=== PATIENT | male | born 2000 | race Caucasian/White ===

== ENCOUNTER 2023-05-04 09:21 | Outpatient (REF) | payer MEDICAID, SELFPAY ==
[2023-05-04 11:06] LABS: Alanine Aminotransferase 25 U/L (0-40); Alkaline Phosphatase 81 U/L (39-117); Anion Gap 19 (12-20); Aspartate Amino Transferase 21 U/L (5-37); Bilirubin Total 0.7 mg/dL (0.0-1.0); Blood Urea Nitrogen 15 mg/dL (9-16); Calcium 9.4 mg/dL (8.4-10.2); Carbon Dioxide 23 mmol/L (22-29); Chloride 102 mmol/L (96-108); Cholesterol 185 mg/dL (<200); Estimated Glomerular Filt Rate > 60; Glucose Random 129 mg/dL (60-115); HDL Cholesterol 36 mg/dL (>40); LDL Cholesterol Calculated 109 mg/dL (<100); Potassium 4.4 mmol/L (3.3-5.1); Sodium 140 mmol/L (135-145); Total Protein 8.1 g/dL (6.5-8.0); Triglycerides 202 mg/dL (<150)
== END 2023-05-04 09:22 | disposition home or self-care (01) ==
LOC: HO.LAB 09:21
PROVIDERS: PCP Nurse Practitioner Primary Care; Visit Provider Nurse Practitioner Primary Care
DX: E11.69 Type 2 diabetes mellitus with other specified complication (principal); E78.5 Hyperlipidemia, unspecified
CPT/HCPCS: 36415; 80053; 80061; 82043

== ENCOUNTER 2024-10-04 11:13 | Outpatient (REF) | payer OTHER, SELFPAY ==
--- OUTSIDE RECORDS SUMMARY | 2024-10-04 12:28 | XMS_ITS | Encounter Summary ---
Author Organization [employer] Address [address] [facility] [address] [place] [address] Care Team Providers Care Ceramist Name Role Phone Ling Beck Primary Care Provider [phone] Encounter Details Date Type Department Care Team (Latest Contact Info) Description 10/04/2024 10:15 AM EST Office Visit [facility] MED[facility] [address] [place], [place] [phone] Ling Beck ANP [address] [place], [place] [phone] Hospital discharge follow-up (Primary Dx); Type 2 diabetes mellitus with hyperglycemia, with long-term current use of insulin (CMS/[facility]); Dietary counseling; Exercise counseling; Type 2 diabetes mellitus with hyperlipidemia (CMS/HCC) ([facility]/HCC); Hypertension associated with diabetes (CMS/HCC) ([facility]); Uncontrolled diabetes mellitus with hyperglycemia, with long-term current use of insulin ([facility]); Encounter for immunization Social History Tobacco Use Types Packs/Day Years Used Date Smoking Tobacco: Never Smokeless Tobacco: Never Alcohol Use Standard Drinks/Week Comments Never 0 (1 standard drink = 0.6 oz pur e alcohol) Depression Answer Date Recorded Patient Health Questionnaire-9 Score 1 03/14/2024 Patient Health Questionnaire-9 Score 1 03/14/2024 Last PHQ-9: Questionnaire Data Not on file 0 03/14/2024 Housing Stability Answer Date Recorded What is your housing situation today? I have christian cadena 03/02/[address] you li ve. Do you have problems with any of the following? None of the above 03/02/2024 Food Insecurity Answer Date Recorded Within the past 12 months, y ou worried that your food would run out before you got money to buy more: Never True 03/02/2024 Within the past 12 months,th e food you bought just didn't last and you didn't have enough money to get more: Never True Transportation Answer Date Recorded In the past 12 months, has l ack of transportation kept you from medical appts, meetings, work or from getting things needed for daily living? No 03/02/2024 Utilities Answer Date Recorded In the past 12 months, has t he electric, gas, oil or water company threatened to shut off services in your home? No 03/02/2024 Depression Answer Date Recorded Patient Health Questionnaire-2 Score 0 03/14/2024 Internet Access Answer Date Recorded Internet Access Q1 Yes 08/10/2024 Internet Access Q2 Not on file 08/10/2024 Sex and Gender Information Value Date Recorded Sex Assigned at Male 07/07/2022 10:19 AM EDT Legal Sex Male 10:19 AM EDT Gender Identity Male 07/07/2022 10:19 AM EDT Sexual Orientation Straight 07/07/2022 10 :19 AM EDT documented as of this encounter Last Filed Vital Signs Vital Sign Reading Time Taken Comments Blood Pressure 128/68 10/04/2024 10:25 AM EST Pulse 80 10/04/2024 10:25 AM EST Temperature 36.7 ??C (98.1 ??F) 10/04/2024 10:[address] Respiratory Rate 20 10/04/2024 10:25 AM EST Oxygen Saturation 98% 10/04/2024 10:25 AM EST Inhaled Oxygen Concentration - - Weight 145 kg (319 lb) 10/04/2024 10:25 AM EST Height 172.7 cm (5' 8 ) 10/04/2024 10:25 AM EST Body Mass Index 48.5 10/04/2024 10:25 AM EST documented in this encounter Plan of Treatment Upcoming Encounters Date Type Department Care Team (Late st Contact Info) Description 12/23/2024 11:00 AM EDT Office Visit [facility] [address] [place] [address] Ling Beck ANP [address] [place] [address] 01/12/2025 10:00 AM EDT Office Visit [facility] OPTOMET[facility] [address] [place] [address] Loraine Childress, OD [address] [place] [address] Scheduled Orders Name Type Priority Associated Diagnoses Orde r Schedule Lipid Panel, Standard Lab Routine Type 2 diabetes mellitus with hyperlipidemia (CMS/HCC) (CMS/HCC) Expected: 10/04/2024 (Approximate), Expires: 10/04/2025 Comprehensive Metabolic Panel Lab Routine Type 2 diabetes mellitus with hyperlipidemia (CMS/HCC) (CMS/HCC) Expected: 10/04/2024 (Approximate), Expires: 10/04/2025 Vitamin B12 Lab Routine Type 2 diabetes mellitus with hyperlipidemia (CMS/HCC) (CMS/HCC) Expected: 10/04/2024 (Approximate), Expires: 10/04/2025 Albumin, Random Urine W/Creatinine Lab Routine Type 2 diabetes mellitus with hyperlipidemia (CMS/HCC) (CMS/HCC) Expected: 10/04/2024 (Approximate), Expires: 10/04/2025 documented as of this encounter Procedures Procedure Name Priority Date/Time Associated Diagnosis Comments POCT GLYCATED HEMOGLOBIN, TOTAL Routine 10/04/2024 10:27 AM EST Type 2 diabetes mellitus with hyperglycemia, with long-term current use of insulin (CMS/[facility]) POCT GLUCOSE Routine 10/04/2024 10:27 AM EST Type 2 diabetes mellitus with hyperglycemia, with long-term current use of insulin ([facility]) documented in this encounter Results * POCT Glucose (10/04/2024 10:27 AM EST) Glucose Blood, POC 131 60 - 200 mg/dL QC Media Lot # [id number] Lot# Expiration Date Blood Capillary blood specimen / Unknown 10/04/2024 10:27 AM EST [facility] POINT OF CARE TEST ENTER/EDIT OR DERABLES Final Result * (ABNORMAL) POCT HGB A1C (10/04/2024 10:27 AM EST) Hemoglobin A1C 7.8(A) 4.0 - 6.0 % QC Media Lot # [id number] Lot# Expiration Date ,334 Blood 10/04/2024 10:2 7 AM EST Ling ALBERTS POINT OF CARE TEST ENTER/EDIT OR DERABLES Final Result documented in this encounter Visit Diagnoses Diagnosis Hospital discharge follow-up- Primary Other follow-up examination Type 2 diabetes mellitus with hyperglycemia, with long-term current use of insulin ([facility]) Dietary counseling Dietary surveillance and counseling Exercise counseling Type 2 diabetes mellitus with hyperlipidemia (CMS/HCC) ([facility]/HCC) Hypertension associated with diabetes (CMS/HCC) ([facility]) Unspecified essential hypertension Uncontrolled diabetes mellitus with hyperglycemia, with long-term current use of insulin ([facility]) Encounter for immunization documented in this encounter Additional Health Concerns Assessment Noted Time PHQ-9 Depression Total Score: 1 03/14/20 24 11:09 AM EDT documented as of this encounter Care Teams Ceramist Relationship Specialty Start Date End Date Ling Beck ANP [address] [place] [address] PCP - General Family Medicine 11/15/19 documented as of this encounter
--- OUTSIDE RECORDS SUMMARY | 2024-10-04 12:28 | XMS_ITS | Encounter Summary ---
Author Organization [employer] Address [address] [facility] [address] [place] [address] Care Team Providers Care Cloth Designer Name Role Phone Kiran Ling ALBERTS Primary Care Provider Encounter Details Date Type Department Care Team (Latest Contact Info) Description 10/04/2024 Travel Social History Tobacco Use Types Packs/Day Years [...] AM EDT documented as of this encounter Plan of Treatment Upcoming Encounters Date Type Department Care Team (Late st Contact Info) Description 12/23/2024 11:00 AM EDT Office Visit [facility] [address] [place] [address] Ling Beck ANP [address] [place] [address] 01/12/2025 10:00 AM EDT Office Visit [facility] OPTOMET[facility] [address] [place] [address] Loraine Childress, OD [address] [place] [address] documented as of this encounter Visit Diagnoses Not on filedocumented in this encounter Additional Health Concerns Assessment Noted Time PHQ-9 Depression Total Score: 1 03/14/20 24 11:09 AM EDT documented as of this encounter Care Teams Cloth Designer Relationship Specialty Start Date End Date Ling Beck ANP [address] [place] [address] PCP - General Family Medicine 11/15/19 documented as of this encounter
--- OUTSIDE RECORDS SUMMARY | 2024-10-04 12:28 | XMS_ITS | Encounter Summary ---
Author Organization [employer] Address [address] [facility] [address] [place] [address] Care Team Providers Care Field Service Consultant Name Role Phone Ling Beck Primary Care Provider [phone] Reason for Visit * Reason Comments Med Refill Encounter Details Date Type Department Care Team ([facility] st Contact Info) Description 09/25/2024 Refill [facility] [address] [place], [place] [phone] Ling Beck ANP [address] [place] [address] Type 2 diabetes mellitus with hyperlipidemia ([facility]/HCC) ([facility]) Social History Tobacco Use Types Packs/Day Years [...] Description 12/23/2024 11:00 AM EDT Office Visit [facility] [address] [place] [address] Ling Beck ANP [address] [place] [address] 01/12/2025 10:00 AM EDT Office Visit [facility] OPTOMETRY [address] [place] [address] Loraine Childress, OD [address] [place] [address] documented as of this encounter Visit Diagnoses Diagnosis Type 2 diabetes mellitus with hyperlipidemia (CMS/HCC) (CMS/HCC) documented in this encounter Additional Health Concerns Assessment Noted Time PHQ-9 Depression Total Score: 1 03/14/20 24 11:09 AM EDT documented as of this encounter Care Teams Field Service Consultant Relationship Specialty Start Date End Date Ling Beck ANP [address] [place] [address] PCP - General Family Medicine 11/15/19 documented as of this encounter
--- OUTSIDE RECORDS SUMMARY | 2024-10-04 12:28 | XMS_ITS | Encounter Summary ---
Author Organization [employer] [facility] Address [address] [place] [address] [address] [place] [address] Care Team Providers Care Hydraulic Lift Operator Name Role Phone Yadira Moses Primary Care Provider [phone] Reason for Referral * Consultation (Urgent) - Authorized Specialty Diagnoses / Procedures Referred By Contac t Referred To Contact Endocrinology Diagnoses Type 2 diabetes mellitus with hyperlipidemia (CMS/HCC) ([facility]/HCC) History of diabetic ketoacidosis Yadira Moses ANP [address] [place] [address] Phone: tel: fax: [facility] [address] [place] [address] Phone: tel: fax: Referral ID Status Reason Start Date Expiration Date Visits Requested Visits Authorized [id number] Authorized Specialty Services Required 09/27/2024 09/27/2025 1 1 Reason for Visit * Reason Onset Date Comments Prior Authorization 09/24/2024 Encounter Details Date Type Department Care Team ([facility] st Contact Info) Description 09/24/2024 Telephone [facility] [address] [place], [place] [phone] Mariam Muhammad RN [address] [place], [place] [phone] Prior Authorization Social History Tobacco Use Types Packs/Day Years [...] AM EDT documented as of this encounter Miscellaneous Notes * Telephone Encounter - Sheila Porter RN - 09/28/2024 3:36 PM EST PA packet faxed to [facility] at [phone]. Confirmation received, placed in bin to scan. * Telephone Encounter - Sheila Porter RN - 09/27/2024 10:21 AM EST Continuous Glucose Monitor packet for renewal of sensors generated and placed on PCP desk. Called pt to notify that endocrinology referral was made, advised pt that endo referral made today and to expect call in about a week from that office to schedule an appt. Also informed that CGM sensor paperwork being sent to insurance company for review. Pt verbalized understanding, to call clinic PRN. * Addendum Note - ARISTEO Vick - 09/27/2024 8:59 AM ESTAddended by: YADIRA MOSES on: 09/27/2024 08:59 AM Modules accepted: Orders * Telephone Encounter - ARISTEO Vick - 09/27/2024 8:54 AM EST Can we try to get covered for CGM based on hospitalization for DKA? I will place referral to endo as well - please let pt know, am referring to endo d/t need for higher level of care. Though he has been stable when he complies w/ DM diet and takes meds, when he does not, the result is extreme - I believe this is his 3rd hospitalization for DKA. Lab Results Component Value Date HGBA1C 9.1 (A) 03/14/2024 HGBA1C 6.2 (A) 07/10/2023 HGBA1C 6.0 (A) 04/09/2023 HGBA1C 6.2 (A) 12/25/2022 HGBA1C 9.6 (A) 10/02/2022 HGBA1C 5.9 (H) 02/13/2021 * Telephone Encounter - Mariam Muhammad RN - 09/24/2024 11:43 AM EST Received request for CGM sensor renewal. However, in order for insurance to cover, they require that pt is either stable or has improved glycemic control on CGM. Pt's A1C has increased from 9.1% to 11.7% since starting (possibly different now as most recent check was in July) and he was admitted for diabetic ketoacidosis in July as well. documented in this encounter Plan of Treatment Upcoming Encounters Date Type Department Care Team (Late st Contact Info) Description 12/23/2024 11:00 AM EDT Office Visit [facility] MEDICINE [address] [place] [address] Yadira Moses ANP [address] [place] [address] 01/12/2025 10:00 AM EDT Office Visit [facility] OPTOMETRY [address] [place], [place] [phone] Loraine Childress, OD [address] [place] [address] Scheduled Referrals Name Type Priority Associated Diagnoses Orde r Schedule Referral to Endocrinology Outpatient Referral Urgent Type 2 diabetes mellitus with hyperlipidemia (CMS/HCC) (CMS/HCC) History of diabetic ketoacidosis Expected: 09/27/2024 (Approximate), Expires: 09/27/2025 documented as of this encounter Visit Diagnoses Diagnosis Type 2 diabetes mellitus with hyperlipidemia (CMS/HCC) (CMS/HCC)- Primary History of diabetic ketoacidosis documented in this encounter Additional Health Concerns Assessment Noted Time PHQ-9 Depression Total Score: 1 03/14/20 24 11:09 AM EDT documented as of this encounter Care Teams Hydraulic Lift Operator Relationship Specialty Start Date End Date Yadira Moses ANP [address] [place] [address] PCP - General Family Medicine 11/15/19 documented as of this encounter
--- OUTSIDE RECORDS SUMMARY | 2024-10-04 12:28 | XMS_ITS | Encounter Summary ---
Author Organization [employer] Address [address] [place] [address] [address] [place] [address] Care Team Providers Care Inside Sales Consultant Name Role Phone Ling Beck Primary Care Provider [phone] Reason for Visit * Reason Onset Date Comments Med Refill 10/07/2022 Encounter Details Date Type Department Care Team ([facility] st Contact Info) Description 10/07/2022 Telephone [facility] [address] [place], [place] [phone] Ling Beck ANP [address] [place] [address] Med Refill Social History Tobacco Use Types Packs/Day Years Used Date Smoking Tobacco: Never Smokeless Tobacco: Never Alcohol Use Standard Drinks/Week Comments Never 0 (1 standard drink = 0.6 oz pur e alcohol) Depression Answer Date Recorded Patient Health Questionnaire-9 Score 1 10/02/2022 Depression Answer Date Recorded Patient Health Questionnaire-2 Score 1 10/02/2022 Sex and Gender Information Value Date Recorded Sex Assigned at Male 07/07/2022 10:19 AM EDT Legal Sex Male 10:19 AM EDT Gender Identity Male 07/07/2022 10:19 AM EDT Sexual Orientation Straight 07/07/2022 10 :19 AM EDT COVID-19 Exposure Response Date Recorded In the last 10 days, have yo u been in contact with someone who was confirmed or suspected to have Coronavirus/COVID-19? No / Unsure 10/02/2022 9:09 AM EST documented as of this encounter Miscellaneous Notes * Telephone Encounter - Loretta Mars RN - 10/09/2022 12:11 PM EST Pt came into [facility] asking for medication, states out of lantus, med refill in inbox. * Telephone Encounter - Liana Orozco LPN - 10/07/2022 10:53 AM EST Please note Patient called seeking refills He was last seen 01/28/21 and has scheduled an appt on 10/23/22.Please review and advise * Telephone Encounter - Kym Voss - 10/07/2022 10:19 AM EST Tc from pt requesting med refill for medication lantus, metformin 500 mg and atorvastatin 20 mg . documented in this encounter Plan of Treatment Upcoming Encounters Date Type Department Care Team (Late st Contact Info) Description 12/23/2024 11:00 AM EDT Office Visit [facility] [address] [place] [address] Ling Beck ANP [address] [place] [address] 01/12/2025 10:00 AM EDT Office Visit [facility] OPTOMETRY [address] [place] [address] Loraine Childress, OD [address] [place] [address] documented as of this encounter Visit Diagnoses Not on filedocumented in this encounter Additional Health Concerns Assessment Noted Time PHQ-9 Depression Total Score: 1 10/02/19 23 9:26 AM EST documented as of this encounter Care Teams Inside Sales Consultant Relationship Specialty Start Date End Date Ling Beck ANP [address] [place] [address] PCP - General Family Medicine 11/15/19 documented as of this encounter
--- OUTSIDE RECORDS SUMMARY | 2024-10-04 12:28 | XMS_ITS | Clinical Summary ---
Author Organization [email or web address] Address [address] [facility] [address] [place] [address] Care Team Providers Care Application Support Lead Name Role Phone Ling Beck ARISTEO Primary Care Provider [phone] Allergies No known active allergies Medications glucose-vitamin C 4-6 GM-MG oral gelIndications:T ype 2 diabetes mellitus with hyperlipidemia (CMS/HCC) (CMS/[facility]) take 3 tabs if BG 60 or below, recheck BG in 15min, if cont to be low, take 3 more tabs and go to ED 50 tablet 1 023 Active Alcohol Swabs (B-D SINGLE USE SWABS REGULAR) padsIndications: Type 2 diabetes mellitus with hyperlipidemia (CMS/HCC) (CMS/HCC) USE 1 SWAB EXTERNALLY 4 TIMES DAILY DIRECTED 100 each 024 Active FREESTYLE LITE test stripIndications :Type 2 diabetes mellitus with hyperlipidemia (CMS/HCC) (CMS/HCC) USE 1 STRIP TO CHECK GLUCOSE 4 TIMES DAILY DIRECTED 100 each 024 Active FreeStyle lancetsIndicatio ns:Type 2 diabetes mellitus with hyperlipidemia (CMS/HCC) (CMS/[facility]) 1 each by Other route 4 times daily. Or more often if needed 100 each 024 Active glucose blood (FreeStyle Precision Augie Test) test stripIndications :Uncontrolled diabetes mellitus with hyperglycemia, with long-term current use of insulin (CMS/[facility]) Use w/ CGM machine for fingerstick BG 4 times/d or more as needed 100 each 024 2024 Active Continuous Glucose Director Of Special Events (FreeStyle Marcelo 2 Piercy) deviceIndication s:Type 2 diabetes mellitus with hyperlipidemia ([facility]/HCC) ([facility]),Type 2 diabetes mellitus with hyperglycemia, with long-term current use of insulin ([facility]),Uncont rolled diabetes mellitus with hyperglycemia, with long-term current use of insulin ([facility]) Use with sensor to check blood sugars 1 each 024 Active Blood Glucose Monitoring Suppl (FreeStyle Lite) w/Device kit USE 1 TO CHECK GLUCOSE THREE TIMES DAILY BEFORE MEALS/SNACKS AND ONCE BEFORE BEDTIME 024 Active metFORMIN XR (Glucophage-XR) 500 MG 24 hr tabletIndication s:Type 2 diabetes mellitus with hyperlipidemia ([facility]/HCC) ([facility]) Take 2 tablets (1,000 mg) by mouth Once daily. Do not crush, chew, or split. 60 tablet 11 025 2025 Active Lantus SoloStar 100 UNIT/ML penIndications:T ype 2 diabetes mellitus with hyperlipidemia ([facility]/HCC) ([facility]) INJECT 30 UNITS SUBCUTANEOUSLY ONCE DAILYINJECT 40 UNITS SUBCUTANEOUSLY ONCE DAILY 30 mL 2 025 Active atorvastatin (Lipitor) 20 MG tabletIndication s:Type 2 diabetes mellitus with hyperglycemia, with long-term current use of insulin ([facility]) Take 1 tablet (20 mg) by mouth at bedtime. 90 tablet 3 025 Active Dulaglutide (Trulicity) 0.75 MG/0.5ML solution auto-injectorInd ications:Type 2 diabetes mellitus with hyperglycemia, with long-term current use of insulin ([facility]) Inject 0.75 mg under the skin 1 (one) time per week. 2 mL 025 Active lisinopril 10 MG tabletIndication s:Type 2 diabetes mellitus with hyperlipidemia ([facility]/HCC) ([facility]),Hypert ension associated with diabetes ([facility]/HCC) ([facility]) 1 tablet by mouth once daily 90 tablet 1 025 Active Continuous Glucose Sensor (FreeStyle Marcelo 2 Sensor) miscIndications: Type 2 diabetes mellitus with hyperglycemia, with long-term current use of insulin ([facility]),Type 2 diabetes mellitus with hyperlipidemia ([facility]/HCC) ([facility]),Uncont rolled diabetes mellitus with hyperglycemia, with long-term current use of insulin ([facility]) Apply 1 sensor as directed every 14d 6 each 3 025 Active Lantus SoloStar 100 UNIT/ML penIndications:T ype 2 diabetes mellitus with hyperlipidemia ([facility]/HCC) ([facility]) INJECT 40 UNITS SUBCUTANEOUSLY ONCE DAILY 30 mL 2 024 2024 Discontinued metFORMIN XR (Glucophage-XR) 500 MG 24 hr tabletIndication s:Type 2 diabetes mellitus with hyperlipidemia ([facility]/HCC) ([facility]) Take 2 tablets (1,000 mg) by mouth with breakfast and with evening meal. Do not crush, chew, or split. 120 tablet 11 024 2024 Discontinued(R eorder (will not trigger notification to Pharmacy)) Continuous Glucose Sensor (FreeStyle Marcelo 2 Sensor) miscIndications: Type 2 diabetes mellitus with hyperlipidemia ([facility]/HCC) ([facility]),Type 2 diabetes mellitus with hyperglycemia, with long-term current use of insulin ([facility]),Uncont rolled diabetes mellitus with hyperglycemia, with long-term current use of insulin ([facility]) Apply 1 sensor as directed every 14d 6 each 3 024 2024 Discontinued(R eorder (will not trigger notification to Pharmacy)) lisinopril 10 MG tabletIndication s:Type 2 diabetes mellitus with hyperlipidemia ([facility]/HCC) ([facility]),Hypert ension associated with diabetes ([facility]) ([facility]) 1 tablet by mouth once daily 90 tablet 1 024 2024 Discontinued(R eorder (will not trigger notification to Pharmacy)) atorvastatin (Lipitor) 20 MG tablet Take 20 mg by mouth Once per day. 2024 Discontinued(R eorder (will not trigger notification to Pharmacy)) insulin lispro (HumaLOG) 100 UNIT/ML injection Subcutaneous 1-3x/day as directed. BG </=150 mg/dl, no need to take. BG 151-200 mg/dl, 2 units; 201-250, 3 units; 251-300, 4 units; 301-350, 5 units; 351-400, 7 units; > or equal to 401, 8 units. 024 2024 Discontinued(T herapy completed) Lantus SoloStar 100 UNIT/ML penIndications:T ype 2 diabetes mellitus with hyperlipidemia (CMS/HCC) ([facility]) INJECT 40 UNITS SUBCUTANEOUSLY ONCE DAILY 30 mL 2 025 2024 Discontinued(R eorder (will not trigger notification to Pharmacy)) Active Problems Problem Noted Date Diagnosed Date Type 2 diabetes mellitus with hyperlipidemia (CM S/HCC) 10/02/2022 Hyperlipidemia 11/08/2017 Steatohepatitis 11/08/2017 Obesity 01/21/2012 Encounters Date Type Department Care Team Description 10/04/2024 10:15 AM EST Office Visit [facility] [address] [place] [id number] Ling Beck ANP Hospital discharge follow-up (Primary Dx); Type 2 diabetes mellitus with hyperglycemia, with long-term current use of insulin (CMS/[facility]); Dietary counseling; Exercise counseling; Type 2 diabetes mellitus with hyperlipidemia (CMS/HCC) ([facility]); Hypertension associated with diabetes (CMS/HCC) ([facility]); Uncontrolled diabetes mellitus with hyperglycemia, with long-term current use of insulin ([facility]); Encounter for immunization 10/04/2024 Travel 09/25/2024 Refill [facility] [address] [place] [phone] Ling Beck ANP Type 2 diabetes mellitus with hyperlipidemia (CMS/HCC) ([facility]/HCC) 09/24/[address] [phone] 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 08/30/[address] [phone] Ling Beck ANP Hospital Follow-up 08/29/[address] [phone] Inga Lewis MA chart prep 08/10/2024 Patient Outreach [address] [phone] Ling Beck ANP Pre-visit Planning (SDOH screening was completed on 03/02/2024 / patient wants to R/s ) from Last 3 Months Immunizations Name Administration Dates Next Due DTaP 05/24/2003, 0,1999,07/10,1999 HPV 9-Valent 06/07/2015 HPV, Quadrivalent 05/14/2012,04/30/2011 Hep A, ped/adol, 2 dose 04/30/2011,04/30/2010 Hep B, Adolescent or Pediatric 1999,1998,1999 Hib (HbOC) 02/12/2000, 0,1999,04/17 IPV 05/24/2003, 0,1999,04/17 Influenza injectable quadriv alent IIV4 with preservative 06/30/2019 Influenza injectable quadriv alent preservative free 09/11/2022,09/16/2018,08/04/2017,06/26 Influenza live intranasal qu adrivalent LIAV4 06/07/2015 Influenza live intranasal trivalent 05/14/2012 Influenza, live, intranasal 05/14/2012 Influenza, seasonal, injecta ble, preservative free 10/04/2024 MMR 05/24/2003,02/12/2000 Meningococcal MCV4P ACYW-135 06/07/2015,04/30/20 11 Moderna Covid-19 Vaccine 12+ 12/05/2020,11/08/19 21 Pneumococcal Conjugate PCV 7 08/13/2000,05/14/20 00 Tdap 10/04/2024,04/30/2010 Varicella 04/20/2009,02/12/2000 Social History Tobacco Use Types Packs/Day Years [...] Orientation Straight 07/07/2022 10 :19 AM EDT Last Filed Vital Signs Vital Sign Reading [...] Mass Index 48.5 10/04/2024 10:25 AM EST Plan of Treatment Upcoming Encounters Date Type Department Care Team (Late st Contact Info) Description 12/23/2024 11:00 AM EDT Office Visit [facility] [address] [place] [address] Ling Beck, ARISTEO [address] [place] [address] 01/12/2025 10:00 AM EDT Office Visit [facility] [address] [place] [address] Loraine Childress, OD [address] [place] [address] Health Maintenance Due Date Last Done Comments HIV Screening 1999 Pneumococcal Vaccine: Pediatrics (0 to 5 Years) and At-Risk Patients (6 to 64 Years) (1 of 2 - PCV) 2005 08/13/2000, 05/14/2000 Diabetes: Foot Exam 2009 Family Planning (PISQ) 2014 Hepatitis C Screening 2017 Diabetes: Urine Protein Screening 05/04/2024 05/04/2023, 02/13/2021, 10/24/2020 Lipid Panel 05/04/2024 05/04/2023, 02/13/2021 COVID-19 Vaccine ( season) 2024 09/09/2021, 12/05/2020, 11/07/2020 Diabetes: Hemoglobin A1C 01/02/2025 025, 03/14/2024, 07/10/2023, Additional history exists SDOH Screening 03/02/2025 03/02/2024 Depression Screening 03/14/2025 03/14/2024, 03/14/20 24 Eye Exam 07/02/2025 07/02/2023, 06/08, 07/02/2023, Additional history exists Alcohol/Substance Use Screening 10/04/2025 10/04/2024 Tobacco Screening 10/04/2025 10/04/2024 DTaP/Tdap/Td Vaccines (8 - Td or Tdap) 10/04/2034 10/04/2024, 04/30/2010, 05/24/2003, Additional history exists Zoster Vaccines (1 of 2) 2049 RSV Patients and Patients Aged 60 years or older (1 - 1-dose 75+ series) 2074 Hepatitis B Vaccines Completed 1999, 1999, 1999 HIB Vaccines Completed 02/12/2000, 09/07, 1999, Additional history exists IPV Vaccines Completed 05/24/2003, 09/07, 1999, Additional history exists Hepatitis A Vaccines Completed 04/30/2011, 04/30/20 10 HPV Vaccines Completed 06/07/2015, 03/2012, 04/30/2011 Meningococcal Vaccine Completed 06/07/2015, 011 Influenza Vaccine Completed 10/04/2024, , 06/30/2019, Additional history exists RSV under 20 months Aged Out No longe r eligible based on patient's age to complete this topic Rotavirus Vaccines Aged Out No longer eligible based on patient's age to complete this topic Procedures Procedure Name Priority Date/Time Associated Diagnosis Comments POCT GLUCOSE Routine 10/04/2024 10:27 AM EST Type 2 diabetes mellitus with hyperglycemia, with long-term current use of insulin ([facility]) POCT GLYCATED HEMOGLOBIN, TOTAL Routine 10/04/2024 10:27 AM EST Type 2 diabetes mellitus with hyperglycemia, with long-term current use of insulin ([facility]) ALBUMIN, RANDOM URINE W/CREATININE Routine 05/04/2023 9:45 AM EDT Type 2 diabetes mellitus with hyperlipidemia ([facility]) LIPID PANEL, STANDARD Routine 05/04/2023 9:45 AM EDT Type 2 diabetes mellitus with hyperlipidemia ([facility]) from Last 3 Months or Most Recently Relevant to Health Maintenance Results * (ABNORMAL) POCT HGB A1C (10/04/2024 10:27 AM EST) Hemoglobin A1C 7.8(A) 4.0 - 6.0 % QC Media Lot # [id number] Lot# Expiration Date ,[id number] Blood 10/04/2024 10:2 7 AM EST [facility] POINT OF CARE TEST ENTER/EDIT OR DERABLES Final Result * POCT Glucose (10/04/2024 10:27 AM EST) Glucose Blood, POC 131 60 - 200 mg/dL QC Media Lot # [id number] Lot# Expiration Date Blood Capillary blood specimen / Unknown 10/04/2024 10:27 AM EST us Ling Beck ANP POINT OF CARE TEST ENTER/EDIT OR DERABLES Final Result * Albumin, Random Urine W/Creatinine (05/04/2023 9:45 AM EDT) Pathologist [facility] Creatinine, Urine 417.00 mg/dL [facility] Microalbumin Urine 17.0 mg/L [facility] Microalbum Creatinine Ratio Ur 4.0 <30 ug/mg cr [facility] Comment:Albumin/Creatinine R atio Reference Ranges: Normal: < 30 ug/mg creatinine Microalbuminuria: 30 - 300 ug/mg creatinineClinical Albuminuria: > 300 ug/mg creatinine Urine 05/04/2023 9:45 AM EDT 05/04/2023 10:39 AM EDT us Ling Beck ANP LAB URINE ORDERABLES Final Resul t [facility] [address] [place] [phone] * (ABNORMAL) Lipid Panel, Standard (05/04/2023 9:45 AM EDT) Triglycerides 202(H) <150 mg/dL [facility] Comment:Desirable Triglyceri de: less than 150 mg/dLBorderline High Triglyceride 150-199 mg/dLHigh Triglyceride: 200-499 mg/dLVery High Triglyceride: greater than or equal to 5OO mg/dL Cholesterol 185 <200 mg/dL [facility] Comment:Desirable Cholestero l: less than 200 mg/dLBorderline High Cholesterol: 200-239 mg/dLHigh Cholesterol: greater than 239 mg/dL LDL Cholesterol Calculated 109(H) <100 mg/dL [facility] Comment:Desirable LDL: less than 100 mg/dLNear Optimal/Above Optimal LDL: 110- 129 mg/dLBorderline High LDL: 130-159 mg/dLHigh LDL: 160-189 mg/dLVery High LDL: greater than or equal to 190 mg/dL HDL Cholesterol 36(L) >40 mg/dL [facility] Comment:Desirable HDL: great er than 40 mg/dL Note: This HDL assay may give artificially low results in patients with liver disease. Blood Venous blood specimen / Unknown 05/04/2023 9:45 AM EDT 05/04/2023 9:45 AM EDT us Ling Beck [facility] BLOOD ORDERABLES Final Resul t [facility] [address] [place] [place] [phone] from Last 3 Months or Most Recently Relevant to Health Maintenance Insurance [employer] C3 Care Teams Application Support Lead Relationship Specialty Start Date End Date Ling Beck ANP [address] [place] [address] PCP - General Family Medicine 11/15/19
--- OUTSIDE RECORDS SUMMARY | 2024-10-04 12:28 | XMS_ITS | Encounter Summary ---
Author Organization [employer] Address [address] [facility] 7 [place] [address] Care Team Providers Care Production Line Manager Name Role Phone Ling Beck Primary Care Provider [phone] Reason for Visit * Reason Onset Date Comments Hospital Follow-up 08/30/2024 Encounter Details Date Type Department Care Team ([facility] st Contact Info) Description 08/30/2024 Telephone [facility] [address] [place], [place] [phone] Ling Beck ANP [address] [place] [address] Hospital Follow-up Social History Tobacco Use Types Packs/Day Years [...] encounter Miscellaneous Notes * Telephone Encounter - Joshua Caputo - 08/30/2024 8:49 AM EST Tc from pt requesting to r/s HDF appt scheduled for 08/30/24, appt was cancelled. Please contact at [phone] documented in this encounter Plan of Treatment Upcoming Encounters Date Type Department Care Team (Late st Contact Info) Description 12/23/2024 11:00 AM EDT Office Visit [facility] [address] [place] [address] Ling Beck ANP [address] [place] [address] 01/12/2025 10:00 AM EDT Office Visit [facility] [address] [place] [address] Loraine Childress OD [address] [place] [address] documented as of this encounter Visit Diagnoses Not on filedocumented in this encounter Additional Health Concerns Assessment Noted Time PHQ-9 Depression Total Score: 1 03/14/20 24 11:09 AM EDT documented as of this encounter Care Teams Production Line Manager Relationship Specialty Start Date End Date Ling Beck ANP [address] [place] [address] PCP - General Family Medicine 11/15/19 documented as of this encounter
--- OUTSIDE RECORDS SUMMARY | 2024-10-04 12:29 | XMS_ITS | Clinical Summary ---
Author Organization [facility] Address [address] [place] [address] Phone Care Team Providers Care Smart Energy Specialist Name Role Phone Ling Beck NP Primary Care Provider [phone] Allergies No known active allergies Medications Medication Sig Dispensed Refills Start Date End Date Status lisinopriL (PRINIVIL,ZESTRIL) 10 mg tablet Take 1 tablet (10 mg total) by mouth 1 (one) time each day. 05/16/2024 Active Lantus Solostar U-100 Insulin 100 unit/mL (3 mL) injection pen Inject 50 Units under the skin 1 (one) time each day. 15 mL 07/28/2024 Active pen needle, diabetic 32 gauge x 5/32 needle 3 (three) times a day. Use to inject insulin 3 time(s) per day 90 each 1 07/28/2024 Active insulin lispro (HumaLOG KwikPen) 100 unit/mL injection pen Inject 1-3 times per day as directed. Blood sugar LESS than OR equal to 150 mg/dL: donot need to take Blood Glucose Level 151 - 200 mg/dL: 2 unit Blood Glucose Level 201 - 250 mg/dL: 3 units Blood Glucose Level 251 - 300 mg/dL: 4 units Blood Glucose Level 301 - 350 mg/dL: 5 units Blood Glucose Level 351 - 400 mg/dL: 7 units GREATER than OR equal to 401 mg/dL: 8 unitsInject 1-3 times per day as directed. Blood sugar LESS than OR equal to 150 mg/dL: donot need to take Blood Glucose Level 151 - 200 mg/dL: 2 unit Blood Glucose Level 201 - 250 mg/dL: 2 units Blood Glucose Level 251 - 300 mg/dL: 4 units Blood Glucose Level 301 - 350 mg/dL: 5 units Blood Glucose Level 351 - 400 mg/dL: 7 units GREATER than OR equal to 401 mg/dL: 8 units 30 mL 1 07/28/2024 07/28/2025 Active Active Problems Problem Noted Date Diagnosed Date Poorly controlled diabetes mellitus 07/28/2024 Resolved Problems Problem Noted Date Diagnosed Date Resolved Date Diabetic ketoacidosis withou t coma associated with type 2 diabetes mellitus 07/25/2024 07/28/2024 Encounters Date Type Department Care Team Description 07/25/2024 4:01 PM EST - 07/28/2024 2:55 PM EST Hospital Encounter [facility] [address] [place] [address] Marin Cade MD Bukalo, Nermina, MD Rasul, Yar M, MD Surendran, Anupama, MD Diabetic ketoacidosis without coma associated with type 2 diabetes mellitus (CMS/HCC) (Primary Dx) Discharge Disposition: Home or Self Care from Last 3 Months Medical History Medical History Date Comments Diabetes mellitus (CMS/HCC) Hypertension Family History Medical History Relation Name Comments Diabetes Mother Coronary artery disease Other Relation Name Status Comments Mother Other Social History Tobacco Use Types Packs/Day Years Used Date Smoking Tobacco: Never Smokeless Tobacco: Never Tobacco Cessation:Counseling Given: Not Answered Alcohol Use Standard Drinks/Week Comments Not Currently 0 (1 standard drink = 0.6 oz pur e alcohol) Housing Instability Answer Date Recorde d Are you worried that in the next 2 months you may not have stable housing? Patient declined 07/27/2024 Food Access & Nutrition Answer Date Rec orded Do you have access to a vari ety of food including fruits and vegetables? Yes 07/27/2024 Health Literacy Answer Date Recorded How often do you need to hav e someone help you when you read instructions, pamphlets, or other written material from your doctor or pharmacy? Patient declined 07/27/2024 Caregiver: How often do you need to have someone help you when you read instructions, pamphlets, or other written material from your doctor or pharmacy? Not on file 024 Financial Risk Answer Date Recorded How hard is it for you to pa y for the very basics like food, housing, medical care, and air conditioning / heating? Patient declined 07/27/2024 Transportation Answer Date Recorded Has the lack of transportati on kept you from meetings, work, or from getting things needed for daily living? No Has the lack of transportati on kept you from medical appointments or from getting medications? No 07/27/2024 Social Isolation Answer Date Recorded How often do you feel lonely or isolated from those around you? Patient declined 07/27/2024 Food Risk Answer Date Recorded Within the past 12 months we worried whether our food would run out before we got money to buy more. Patient declined 024 Within the past 12 months th e food we bought just didn't last and we didn't have money to get more. Patient declined 07/09 Dependent Care Answer Date Recorded Do you need help finding or paying for care for your loved ones. For example, early childhood educator aide or elderly care for an older adult? No 07/27/2024 Education Answer Date Recorded Do you think completing more education or training, like finishing a GED, going to college, or learning a trade, would be helpful for you? Patient declined 07/27/2024 Employment and Income Answer Date Recor ded During the last four weeks, have you been actively looking for work? Yes 07/27/2024 Living Situation Answer Date Recorded What is your living situation? 1 09/26/2023 Interpersonal Safety Answer Date Record ed Physical Abuse 07/27/2024 Verbal Abuse 07/27/2024 Sex and Gender Information Value Date Recorded Sex Assigned at Male 07/25/2024 4:09 PM EST Gender Identity Male 07/25/2024 4:09 PM EST Sexual Orientation Not on file Job Start Date Occupation Industry Not on file Not on file Not on file Obstetrics History Last Filed Vital Signs Vital Sign Reading Time Taken Comments Blood Pressure 133/81 07/28/2024 8:12 AM EST Pulse 92 07/28/2024 8:12 AM EST Temperature 36.5 ??C (97.7 ??F) 07/28/2024 8:12 AM ES T Respiratory Rate 16 07/28/2024 8:12 AM EST Oxygen Saturation 98% 07/28/2024 8:12 AM EST Inhaled Oxygen Concentration - - Weight 136 kg (300 lb) 07/26/2024 9:25 PM EST Height 172.7 cm (5' 8 ) 07/26/2024 9:25 PM EST Body Mass Index 45.61 07/26/2024 9:25 PM EST Plan of Treatment Health Maintenance Due Date Last Done Comments Pneumococcal Vaccine: Pediatrics (0 to 5 Years) and At-Risk Patients (6 to 64 Years) (1 of 1 - PPSV23 or PCV20) 2005 08/13/2000, 05/14/2000 Diabetes: Annual Foot Exam 2009 Diabetes: Annual Retina Eye Exam 2009 DTaP,Tdap,and Td Vaccines (7 - Td or Tdap) 04/30/2020 04/30/2010, 05/24/2003, 05/14/2000, Additional history exists HIV Screening 08/05/2022 Hepatitis C Screening 08/05/2022 COVID-19 Vaccine ( season) 2024 09/09/2021, 12/05/2020, 11/07/2020 Influenza Vaccine (#1) 2024 , 06/30/2019, 09/16/2018, Additional history exists Diabetes: Annual Urine Albumin-Creatinine Ratio (uACR) 07/25/2024 Diabetes: Blood Sugar Control Test (HGBA1C) 01/23/2025 07/26/2024, 03/14/2024 Depression Screening 03/14/2025 03/14/2024 Social Influencers of Health Screening 07/27/2025 07/27/2024 Diabetes: Annual GFR (Glomerular Filtration Rate) 07/28/2025 07/28/2024, 07/27/2024, 07/26/2024, Additional history exists Hypertension/CHF/CAD Annual BMP Blood Test 07/28/2025 07/28/2024, 07/27/2024, 07/26/2024, Additional history exists Cholesterol Screening (Lipid Panel) 05/04/2028 05/04/2023 Hepatitis B Vaccines Completed 1999, 1999, 1999 HIB Vaccines Completed 02/12/2000, 09/07, 1999, Additional history exists IPV Vaccines Completed 05/24/2003, 09/07, 1999, Additional history exists MMR Vaccines Completed 05/24/2003, 02/12/2000 Varicella Vaccines Completed 04/20/2009, 02/12/2000 Hepatitis A Vaccines Completed 04/30/2011, 04/30/20 10 HPV Vaccines Completed 06/07/2015, 09/0 03/2012, 04/30/2011 Meningococcal ACWY Vaccine Completed 06/07/2015, RSV Immunization Patients Under 20 months Aged Out No longer eligible based on patient's age to complete this topic Procedures Procedure Name Priority Date/Time Associated Diagnosis Comments POCT GLUCOSE BLOOD Routine 07/28/2024 10 :51 AM EST POCT GLUCOSE BLOOD Routine 07/28/2024 8: 13 AM EST CBC WITH AUTO DIFFERENTIAL Routine 07/28/2024 6:05 AM EST MAGNESIUM Routine 07/28/2024 6:05 AM EST CBC AND DIFFERENTIAL Routine 07/28/2024 6:05 AM EST BASIC METABOLIC PANEL Routine 07/28/2024 6:05 AM EST POCT GLUCOSE BLOOD Routine 07/28/2024 4: 22 AM EST POCT GLUCOSE BLOOD Routine 07/27/2024 9: 03 PM EST ELECTROLYTE PANEL Timed 07/27/2024 8:2 5 PM EST ECG 12-LEAD STAT 07/27/2024 5:39 PM EST ELECTROLYTE PANEL Timed 07/27/2024 3: 54 PM EST POCT GLUCOSE BLOOD Routine 07/27/2024 3: 45 PM EST POCT GLUCOSE BLOOD Routine 07/27/2024 2: 40 PM EST POCT GLUCOSE BLOOD Routine 07/27/2024 1: 49 PM EST POCT GLUCOSE BLOOD Routine 07/27/2024 12 :53 PM EST ELECTROLYTE PANEL Timed 07/27/2024 12: 18 PM EST POCT GLUCOSE BLOOD Routine 07/27/2024 12 :07 PM EST POCT GLUCOSE BLOOD Routine 07/27/2024 10 :45 AM EST POCT GLUCOSE BLOOD Routine 07/27/2024 9: 45 AM EST POCT GLUCOSE BLOOD Routine 07/27/2024 8: 42 AM EST POCT GLUCOSE BLOOD Routine 07/27/2024 7: 17 AM EST POCT GLUCOSE BLOOD Routine 07/27/2024 6: 12 AM EST CBC WITH AUTO DIFFERENTIAL Routine 07/27/2024 5:51 AM EST CBC AND DIFFERENTIAL Routine 07/27/2024 5:51 AM EST MAGNESIUM Routine 07/27/2024 5:51 AM EST BASIC METABOLIC PANEL Routine 07/27/2024 5:51 AM EST POCT GLUCOSE BLOOD Routine 07/27/2024 5: 10 AM EST POCT GLUCOSE BLOOD Routine 07/27/2024 4: 27 AM EST POCT GLUCOSE BLOOD Routine 07/27/2024 3: 12 AM EST ELECTROLYTE PANEL Timed 07/27/2024 2:0 3 AM EST POCT GLUCOSE BLOOD Routine 07/27/2024 1: 57 AM EST POCT GLUCOSE BLOOD Routine 07/27/2024 12 :51 AM EST POCT GLUCOSE BLOOD Routine 07/26/2024 11 :42 PM EST POCT GLUCOSE BLOOD Routine 07/26/2024 10 :28 PM EST POCT GLUCOSE BLOOD Routine 07/26/2024 9: 27 PM EST POCT GLUCOSE BLOOD Routine 07/26/2024 8: 30 PM EST ELECTROLYTE PANEL Timed 07/26/2024 7:2 1 PM EST POCT GLUCOSE BLOOD Routine 07/26/2024 7: 17 PM EST POCT GLUCOSE BLOOD Routine 07/26/2024 6: 07 PM EST POCT GLUCOSE BLOOD Routine 07/26/2024 4: 48 PM EST ELECTROLYTE PANEL Timed 07/26/2024 3:0 1 PM EST POCT GLUCOSE BLOOD Routine 07/26/2024 2: 44 PM EST POCT GLUCOSE BLOOD Routine 07/26/2024 1: 29 PM EST POCT GLUCOSE BLOOD Routine 07/26/2024 11 :55 AM EST ELECTROLYTE PANEL STAT 07/26/2024 11: 18 AM EST POCT GLUCOSE BLOOD Routine 07/26/2024 10 :47 AM EST POCT GLUCOSE BLOOD Routine 07/26/2024 9: 31 AM EST POCT GLUCOSE BLOOD Routine 07/26/2024 8: 27 AM EST POCT GLUCOSE BLOOD Routine 07/26/2024 7: 25 AM EST POCT GLUCOSE BLOOD Routine 07/26/2024 6: 36 AM EST POCT GLUCOSE BLOOD Routine 07/26/2024 5: 37 AM EST POCT GLUCOSE BLOOD Routine 07/26/2024 4: 50 AM EST CBC WITH AUTO DIFFERENTIAL Routine 07/26/2024 4:10 AM EST HEMOGLOBIN A1C Routine 07/26/2024 4:10 AM EST PHOSPHORUS Routine 07/26/2024 4:10 AM EST MAGNESIUM Routine 07/26/2024 4:10 AM EST CBC AND DIFFERENTIAL Routine 07/26/2024 4:10 AM EST BASIC METABOLIC PANEL Timed 07/26/2024 4:10 AM EST POCT GLUCOSE BLOOD Routine 07/26/2024 3: 40 AM EST POCT GLUCOSE BLOOD Routine 07/26/2024 2: 33 AM EST POCT GLUCOSE BLOOD Routine 07/26/2024 12 :57 AM EST POCT GLUCOSE BLOOD Routine 07/25/2024 11 :34 PM EST BASIC METABOLIC PANEL Timed 07/25/2024 11:25 PM EST PROCALCITONIN STAT Add-on 07/25/2024 11:25 PM EST POCT GLUCOSE BLOOD Routine 07/25/2024 10 :23 PM EST POCT GLUCOSE BLOOD Routine 07/25/2024 9: 24 PM EST POCT GLUCOSE BLOOD Routine 07/25/2024 8: 01 PM EST POCT GLUCOSE BLOOD Routine 07/25/2024 7: 03 PM EST ROA URINE CULTURE TUBE STAT 07/25/20 6:59 PM EST URINALYSIS WITH REFLEX MICROSCOPIC AND CULTURE STAT 07/25/2024 6:59 PM EST URINALYSIS WITH REFLEX MICROSCOPIC AND CULTURE STAT 07/25/2024 6:59 PM EST POCT GLUCOSE BLOOD Routine 07/25/2024 6: 25 PM EST POCT GLUCOSE, BLOOD Routine 07/25/2024 5 :35 PM EST POCT GLUCOSE BLOOD Routine 07/25/2024 5: 29 PM EST XR CHEST 1 VIEW STAT 07/25/2024 5:12 PM EST ECG 12-LEAD STAT 07/25/2024 4:46 PM EST LACTATE, WITH REFLEX STAT 07/25/2024 4:45 PM EST POCT GLUCOSE BLOOD Routine 07/25/2024 4: 13 PM EST URINALYSIS WITH REFLEX MICROSCOPIC STAT 07/25/2024 3:43 PM EST URINALYSIS WITH REFLEX MICROSCOPIC STAT 07/25/2024 3:43 PM EST CBC WITH AUTO DIFFERENTIAL STAT 07/25/2024 3:32 PM EST VENOUS BLOOD GAS STAT 07/25/2024 3:32 PM EST BETA HYDROXYBUTYRATE STAT 07/25/2024 3:32 PM EST OSMOLALITY STAT 07/25/2024 3:32 PM EST MAGNESIUM STAT 07/25/2024 3:32 PM EST LIPASE STAT 07/25/2024 3:32 PM EST COMPREHENSIVE METABOLIC PANEL STAT 07/25/2024 3:32 PM EST CBC AND DIFFERENTIAL STAT 07/25/2024 3:32 PM EST ECG ANNOTATED 07/25/2024 from Last 3 Months Results * (ABNORMAL) POCT Glucose, blood (07/28/2024 10:51 AM EST) Only the most recent of47 resultswithin the time period is included. [facility] Glucose POCT 307(H) 70 - 100 mg/dL 07/28/2024 10:59 AM EST [facility] Blood Capillary blood specimen / Unknown 07/28/2024 10:51 AM EST 07/28/2024 11:00 AM EST Jeanette Dooley MD LAB POINT OF CARE T EST DOCKED DEVICE UNSOLICITED RESULTS [facility] [address] [place] [address], * (ABNORMAL) CBC auto differential (07/28/2024 6:05 AM EST) Only the most recent of4 resultswithin the time period is included. [facility] WBC 9.3 4.8 - 10.8 K/mcL LAB HEMETOLOGY METHOD 07/28/2024 6:[address] [facility] RBC 4.70 4.50 - 5.50 M/mcL LAB HEMETOLOGY METHOD 07/28/2024 6:[address] [facility] Hemoglobin 13.6 13.5 - 17.5 g/dL LAB HEMETOLOGY METHOD 07/28/2024 6:[address] [facility] Hematocrit 41.0(L) 42.0 - 54.0 % LAB HEMETOLOGY METHOD 07/28/2024 6:[address] [facility] MCV 87.2 79.0 - 98.0 FL LAB HEMETOLOGY METHOD 07/28/2024 6:[address] [facility] MCH 28.9 27.0 - 32.0 pcg LAB HEMETOLOGY METHOD 07/28/2024 6:[address] [facility] MCHC 33.2 32.0 - 37.0 g/dL LAB HEMETOLOGY METHOD 07/28/2024 6:[address] [facility] RDW 13.9 11.0 - 15.0 % LAB HEMETOLOGY METHOD 07/28/2024 6:[address] [facility] Platelets 397 130 - 400 K/mcL LAB HEMETOLOGY METHOD 07/28/2024 6:[address] [facility] MPV 9.4 7.0 - 11.0 FL LAB HEMETOLOGY METHOD 07/28/2024 6:[address] [facility] NRBC 0.0 <1.0 % LAB HEMETOLOGY METHOD 07/28/2024 6:[address] [facility] NRBC Absolute 0.00 <0.10 K/mcL LAB HEMETOLOGY METHOD 07/28/2024 6:[address] [facility] Neutrophils Relative 47.7 % LAB HEMETOLOGY METHOD 07/28/2024 6:[address] [facility] Lymphocytes Relative 38.2 % LAB HEMETOLOGY METHOD 07/28/2024 6:[address] [facility] Monocytes Relative 11.5 % LAB HEMETOLOGY METHOD 07/28/2024 6:[address] [facility] Eosinophils Relative 1.7 % LAB HEMETOLOGY METHOD 07/28/2024 6:[address] [facility] Basophils Relative 0.5 % LAB HEMETOLOGY METHOD 07/28/2024 6:[address] [facility] Immature Granulocytes Relative 0.4 % LAB HEMETOLOGY METHOD 07/28/2024 6:[address] [facility] Neutrophils Absolute 4.41 1.50 - 7.00 K/mcL LAB HEMETOLOGY METHOD 07/28/2024 6:[address] [facility] Lymphocytes Absolute 3.54 1.00 - 5.00 K/[facility] LAB HEMETOLOGY METHOD 07/28/2024 6:57 AM EST [facility] Monocytes Absolute 1.07(H) 0.20 - 1.00 K/[facility] LAB HEMETOLOGY METHOD 07/28/2024 6:57 AM EST [facility] Eosinophils Absolute 0.16 0.00 - 0.50 K/[facility] LAB HEMETOLOGY METHOD 07/28/2024 6:57 AM EST [facility] Basophils Absolute 0.05 0.00 - 0.20 K/[facility] LAB HEMETOLOGY METHOD 07/28/2024 6:57 AM EST [facility] Immature Granulocytes Absolute 0.04(H) 0.00 - 0.03 K/[facility] LAB HEMETOLOGY METHOD 07/28/2024 6:57 AM EST [facility] Blood Venous blood specimen / Unknown Venipuncture / Unknown 07/28/2024 6:05 AM EST 07/28/2024 6:41 AM EST Jeanette Dooley MD LAB BLOOD ORDERABLE S [facility] [address] [place] [address], * (ABNORMAL) Magnesium (07/28/2024 6:05 AM EST) Only the most recent of4 resultswithin the time period is included. Magnesium 1.7(L) 1.9 - 2.6 mg/dL LAB CHEMISTRY METHOD 07/28/2024 7:24 AM EST [facility] Blood Venous blood specimen / Unknown Venipuncture / Unknown 07/28/2024 6:05 AM EST 07/28/2024 6:40 AM EST Jeanette Dooley MD LAB BLOOD ORDERABLE S [facility] [address] [place] [address], [place] [phone] * (ABNORMAL) Basic metabolic panel (07/28/2024 6:05 AM EST) Only the most recent of4 resultswithin the time period is included. Sodium 137 133 - 145 mmol/L LAB CHEMISTRY METHOD 07/28/2024 7:[address] [facility] Potassium 3.2(L) 3.5 - 5.5 mmol/L LAB CHEMISTRY METHOD 07/28/2024 7:[address] [facility] Chloride 103 96 - 110 mmol/L LAB CHEMISTRY METHOD 07/28/2024 7:[address] [facility] CO2 23 21 - 32 mmol/L LAB CHEMISTRY METHOD 07/28/2024 7:[address] [facility] Anion Gap 11 3 - 11 LAB CHEMISTRY METHOD 07/28/2024 7:[address] [facility] Glucose 268(H) 70 - 100 mg/dL LAB CHEMISTRY METHOD 07/28/2024 7:[address] [facility] BUN 3(L) 5 - 25 mg/dL LAB CHEMISTRY METHOD 07/28/2024 7:[address] [facility] Creatinine 0.58(L) 0.70 - 1.30 mg/dL LAB CHEMISTRY METHOD 07/28/2024 7:[address] [facility] eGFR 139 >=60 mL/min/1. 73m2 LAB CHEMISTRY METHOD 07/28/2024 7:[address] [facility] Comment:Calculation based on the??Chronic Kidney Disease Epidemiology Collaboration (CKD-EPI) equation refit??without adjustment for race. BUN/Creatinine Ratio 5.2 LAB CHEMISTRY METHOD 07/28/2024 7:[address] [facility] Calcium 8.7 8.5 - 10.5 mg/dL LAB CHEMISTRY METHOD 07/28/2024 7:[address] [facility] Blood Venous blood specimen / Unknown Venipuncture / Unknown 07/28/2024 6:05 AM EST 07/28/2024 6:40 AM EST Jeanette Dooley MD LAB BLOOD ORDERABLE S Performing Organization Address [facility]/ZIP Co de Phone Number [facility] [address] [place] [address], [place] [phone] * (ABNORMAL) Electrolyte panel (07/27/2024 8:25 PM EST) Only the most recent of7 resultswithin the time period is included. Sodium 138 133 - 145 mmol/L LAB CHEMISTRY METHOD 07/27/2024 8:[address] [facility] Potassium 3.4(L) 3.5 - 5.5 mmol/L LAB CHEMISTRY METHOD 07/27/2024 8:[address] [facility] Chloride 106 96 - 110 mmol/L LAB CHEMISTRY METHOD 07/27/2024 8:[address] [facility] CO2 22 21 - 32 mmol/L LAB CHEMISTRY METHOD 07/27/2024 8:58 PM EST [facility] Anion Gap 10 3 - 11 LAB CHEMISTRY METHOD 07/27/2024 8:[address] [facility] Blood Venous blood specimen / Unknown Venipuncture / Unknown 07/27/2024 8:25 PM EST 07/27/2024 8:34 PM EST Jeanette Dooley MD LAB BLOOD ORDERABLE S Performing Organization Address City/[facility]/ZIP Co de Phone Number [facility] [address] [place] [address], [place] [phone] * ECG 12 lead (07/27/2024 5:39 PM EST) Only the most recent of2 resultswithin the time period is included. Ventricular Rate ECG 104 BPM GEMUSE Atrial Rate 104 BPM GEMUSE P-R Interval 146 ms GEMUSE QRS Duration 88 ms GEMUSE Q-T Interval 316 ms GEMUSE QTc 415 ms GEMUSE P Wave [place] 4 degrees GEMUSE R [place] -6 degrees GEMUSE T [place] 17 degrees GEMUSE ECG Interpretation Sinus tachycardia Nonspecific T wave abnormality Abnormal ECG When compared with ECG of 25-JUL-2024 16:46, No significant change was found Confirmed by Purvi HOOKS [email or web address] ([id number]) on 07/28/2024 8:10:20 AM GEM[facility] 07/27/2024 5:39 PM EST 07/28/2024 8:10 AM EST Jeanette Dooley MD ECG ORDERABLES G[facility] * (ABNORMAL) Phosphorus (07/26/2024 4:10 AM EST) Phosphorus 1.4(L) 2.5 - 4.5 mg/dL LAB CHEMISTRY METHOD 07/26/2024 4:53 AM EST [facility] Blood Venous blood specimen / Unknown Venipuncture / Unknown 07/26/2024 4:10 AM EST 07/26/2024 4:24 AM EST Lia TURNER LAB BLOOD ORDERABLES [facility] [address] [place] [address], * (ABNORMAL) Hemoglobin A1c (07/26/2024 4:10 AM EST) Hemoglobin A1C 11.7(H) <6.5 % LAB CHEMISTRY METHOD 07/26/2024 9:17 PM EST [facility] Mean Bld Glu Estim. 289 mg/dL LAB CHEMISTRY METHOD 07/26/2024 9:17 PM EST [facility] Blood Venous blood specimen / Unknown Venipuncture / Unknown 07/26/2024 4:10 AM EST 07/26/2024 4:24 AM EST Lia TURNER LAB BLOOD ORDERABLES Performing Organization Address [facility]/ZIP Co de Phone Number [facility] [address] [place] [address], * Procalcitonin (07/25/2024 11:25 PM EST) Procalcitonin 0.02 <=0.16 ng/mL LAB CHEMISTRY METHOD 07/26/2024 7:42 AM EST [facility] Blood Venous blood specimen / Unknown Venipuncture / Unknown 07/25/2024 11:25 PM EST 07/25/2024 11:37 PM EST Narrative [facility] - 07/26/2024 7:42 AM EST Procalcitonin > 2.00 ng/ml: Procalcitonin Levels above 2.00 ng/ml, on the first day of ICU admission represent a high risk for progression to severe sepsis and/or septic shock. Procalcitonin < 0.50 ng/ml: Procalcitonin levels below 0.50 ng/ml on the first day of ICU admission represent a low risk for progression to severe sepsis and/or septic shock. Concentrations <0.5 ng/mL do not exclude an infection, on account of local ized infections (without systemic signs) which can be associated with such low concentrations, or a systemic infection in its initial stages (<6 hours). Furthermore, increased procalcitonin can occur without infection. PCT concentrations between 0.5 and 2.0 ng/mL should be interpreted taking into account the patient's history. It is recommended to retest PCT within 6-24 hours if any concentrations <2.0 ng/mL are obtained. Lia TURNER LAB BLOOD ORDERABLES Performing Organization Address [facility] Co de Phone Number [facility] [address] [place] [address], [place] [phone] * (ABNORMAL) Urinalysis with reflex microscopic and culture (07/25/2024 6:59 PM EST) [facility] Specific [place] Urine 1.022 1.003 - 1.030 LAB URINALYSIS - AUTOMATED METHOD 07/25/2024 7:[address] [facility] pH, Urine 5.0 5.0 - 8.0 pH LAB URINALYSIS - AUTOMATED METHOD 07/25/2024 7:[address] [facility] Leukocytes, Urine Negative Negative LAB URINALYSIS - AUTOMATED METHOD 07/25/2024 7:[address] [facility] Nitrite, Urine Negative Negative LAB URINALYSIS - AUTOMATED METHOD 07/25/2024 7:[address] [facility] Protein, Urine 30(A) <=Trace mg/dL LAB URINALYSIS - AUTOMATED METHOD 07/25/2024 7:[address] [facility] Glucose, Urine >=1000(A) Negative mg/dL LAB URINALYSIS - AUTOMATED METHOD 07/25/2024 7:[address] [facility] Ketones, Urine >=80(A) Negative mg/dL LAB URINALYSIS - AUTOMATED METHOD 07/25/2024 7:[address] [facility] Urobilinogen , Urine 0.2 0.2 - 1.0 mg/dL LAB URINALYSIS - AUTOMATED METHOD 07/25/2024 7:[address] [facility] Bilirubin, Urine Negative Negative LAB URINALYSIS - AUTOMATED METHOD 07/25/2024 7:[address] [facility] Blood, Urine Negative Negative LAB URINALYSIS - AUTOMATED METHOD 07/25/2024 7:[address] [facility] RBC, Urine 1.4 0 - 4 /HPF LAB URINALYSIS - AUTOMATED METHOD 07/25/2024 7:[address] [facility] WBC, Urine 0.3 0 - 4 /HPF LAB URINALYSIS - AUTOMATED METHOD 07/25/2024 7:[address] [facility] Squamous Epithelial, Urine 14 0 - 60 /LPF LAB URINALYSIS - AUTOMATED METHOD 07/25/2024 7:21 PM EST [facility] Bacteria, Urine Negative Negative /HPF LAB URINALYSIS - AUTOMATED METHOD 07/25/2024 7:[address] [facility] Hyaline Casts, Urine 6.9(H) 0 - 3 /LPF LAB URINALYSIS - AUTOMATED METHOD 07/25/2024 7:[address] [facility] Urine Urine specimen obtained by clean catch procedure / Unknown Non-blood Collection / Unknown 07/25/2024 6:59 PM EST 07/25/2024 7:07 PM EST Marin Cade MD LAB URINE ORDERAB LES Performing Organization Address City/[facility]/ZIP Co de Phone Number [facility] [address] [place] [address], [place] [phone] * Roa urine culture tube (07/25/2024 6:59 PM EST) Extra Tube Hold for add-ons. 07/25/2024 9:01 PM EST [facility] Comment:Auto resulted. Urine Urine specimen obtained by clean catch procedure / Unknown Non-blood Collection / Unknown 07/25/2024 6:59 PM EST 07/25/2024 7:07 PM EST Marin Cade MD LAB URINE ORDERAB LES [facility] [address] [place] [address], [place] [phone] * POCT Glucose, blood (07/25/2024 5:35 PM EST) Glucose POC 338 Blood Capillary blood specimen / Unknown 07/25/2024 5:35 PM EST Kelsi Zepeda MD LAB POINT OF CARE TE ST DOCKED DEVICE ORDERABLES * XR Chest 1 View (07/25/2024 5:12 PM EST) Anatomical Region Laterality Modality Body Radiographic Shauna ging 07/26/2024 8:11 AM EST Impressions 07/26/2024 8:12 AM EST No acute chest disease. -------- FINAL REPORT -------- Dictated By: Aris Ibrahim Dictated Date: 07/26/2024 08:11 ET Assigned Physician: Aris Ibrahim Reviewed and Electronically Signed By: Aris Ibrahim Signed Date: 07/26/2024 08:12 ET Workstation ID: [id number] Transcribed By: Self Edit Transcribed Date: 07/26/2024 08:11 ET Narrative 07/26/2024 8:12 AM EST EXAMINATION: CHEST CLINICAL INFORMATION: Hypoglycemia, weakness COMPARISON: Frontal view 09/10/2022 TECHNIQUE: Sitting frontal portable view of the chest FINDINGS: Devices overlie the patient. The cardiac size is within normal limits. The mediastinum, andrew, vasculature, lungs and visualized pleural margins are within normal limits. Procedure Note Aris Ibrahim MD - 07/26/2024 EXAMINATION: CHEST CLINICAL INFORMATION: Hypoglycemia, weakness COMPARISON: Frontal view 09/10/2022 TECHNIQUE: Sitting frontal portable view of the chest FINDINGS: Devices overlie the patient. The cardiac size is within normal limits. Themediastinum, andrew, vasculature, lungs and visualized pleural margins arewithin normal limits. IMPRESSION: No acute chest disease. -------- FINAL REPORT -------- Dictated By: Aris Ibrahim Dictated Date: 07/26/2024 08:11 ET Assigned Physician: Aris Ibrahim Reviewed and Electronically Signed By: Aris Ibrahim Signed Date: 07/26/2024 08:12 ET Workstation ID: [id number] Transcribed By: Self Edit Transcribed Date: 07/26/2024 08:11 ET Kelsi Zepeda MD IMG XR PROCEDURES * Lactate, with reflex (07/25/2024 4:45 PM EST) LACTIC ACID 1.2 0.4 - 2.0 mmol/L LAB CHEMISTRY METHOD 07/25/2024 5:[address] [facility] Blood Venous blood specimen / Unknown Venipuncture / Unknown 07/25/2024 4:45 PM EST 07/25/2024 4:51 PM EST Marin Cade MD LAB BLOOD ORDERAB LES [facility] [address] [place] [address], [place] [phone] * (ABNORMAL) Urinalysis with reflex microscopic (07/25/2024 3:43 PM EST) [facility] Specific [place] Urine 1.030 1.003 - 1.030 LAB URINALYSIS - AUTOMATED METHOD 07/25/2024 4:[address] [facility] pH, Urine 5.5 5.0 - 8.0 pH LAB URINALYSIS - AUTOMATED METHOD 07/25/2024 4:[address] [facility] Leukocytes, Urine Negative Negative LAB URINALYSIS - AUTOMATED METHOD 07/25/2024 4:[address] [facility] Nitrite, Urine Negative Negative LAB URINALYSIS - AUTOMATED METHOD 07/25/2024 4:[address] [facility] Protein, Urine 100(A) <=Trace mg/dL LAB URINALYSIS - AUTOMATED METHOD 07/25/2024 4:[address] [facility] Glucose, Urine >=1000(A) Negative mg/dL LAB URINALYSIS - AUTOMATED METHOD 07/25/2024 4:[address] [facility] Ketones, Urine >=80(A) Negative mg/dL LAB URINALYSIS - AUTOMATED METHOD 07/25/2024 4:[address] [facility] Urobilinogen, Urine 0.2 0.2 - 1.0 mg/dL LAB URINALYSIS - AUTOMATED METHOD 07/25/2024 4:[address] [facility] Bilirubin, Urine Negative Negative LAB URINALYSIS - AUTOMATED METHOD 07/25/2024 4:[address] [facility] Blood, Urine Negative Negative LAB URINALYSIS - AUTOMATED METHOD 07/25/2024 4:[address] [facility] RBC, Urine 2.2 0 - 4 /HPF LAB URINALYSIS - AUTOMATED METHOD 07/25/2024 4:[address] [facility] WBC, Urine 0.6 0 - 4 /HPF LAB URINALYSIS - AUTOMATED METHOD 07/25/2024 4:[address] [facility] Squamous Epithelial, Urine 26 0 - 60 /LPF LAB URINALYSIS - AUTOMATED METHOD 07/25/2024 4:[address] [facility] Bacteria, Urine Negative Negative /HPF LAB URINALYSIS - AUTOMATED METHOD 07/25/2024 4:[address] [facility] Hyaline Casts, Urine 11.8(H) 0 - 3 /LPF LAB URINALYSIS - AUTOMATED METHOD 07/25/2024 4:[address] [facility] Other Casts, Urine 2-5 Fine Granular casts. /LPF LAB URINALYSIS - AUTOMATED METHOD 07/25/2024 4:[address] [facility] Yeast, Urine Present(A) None /HPF LAB URINALYSIS - AUTOMATED METHOD 07/25/2024 4:[address] [facility] Comment:This is an appended report. These results have been appended to a previously final verified report. Urine Urine specimen obtained by clean catch procedure / Unknown Non-blood Collection / Unknown 07/25/2024 3:43 PM EST 07/25/2024 3:45 PM EST Marin Cade MD LAB URINE ORDERAB LES [facility] [address] [place] [address], [place] [phone] * (ABNORMAL) Beta hydroxybutyrate (07/25/2024 3:32 PM EST) Beta-Hydroxyb utyrate >46.0(H) 0.2 - 2.8 mg/dL LAB CHEMISTRY METHOD 07/25/2024 4:07 PM EST [facility] Blood Venous blood specimen / Unknown Venipuncture / Unknown 07/25/2024 3:32 PM EST 07/25/2024 3:38 PM EST Marin Cade MD LAB BLOOD ORDERAB LES Performing Organization Address [facility]/ZIP Co de Phone Number [facility] [address] [place] [address], [place] [phone] * (ABNORMAL) Osmolality (07/25/2024 3:32 PM EST) [facility] Osmolality Camille 322(H) 280 - 300 mOsm/kg LAB CHEMISTRY METHOD 07/25/2024 4:49 PM EST [facility] Blood Venous blood specimen / Unknown Venipuncture / Unknown 07/25/2024 3:32 PM EST 07/25/2024 3:38 PM EST Marin Cade MD LAB BLOOD ORDERAB LES [facility] [address] [place] [address], [place] [phone] * Lipase (07/25/2024 3:32 PM EST) Pathologist [facility] Lipase 29 13 - 75 unit/L LAB CHEMISTRY METHOD 07/25/2024 4:06 PM EST [facility] Blood Venous blood specimen / Unknown Venipuncture / Unknown 07/25/2024 3:32 PM EST 07/25/2024 3:38 PM EST Marin Cade MD LAB BLOOD ORDERAB LES Performing Organization Address [facility]/ZIP Co de Phone Number [facility] [address] [place] [address], * (ABNORMAL) Venous blood gas (07/25/2024 3:32 PM EST) pH, Mian 7.14(LL) 7.32 - 7.42 pH 07/25/2024 3:53 PM EST [facility] pCO2, Mian 27(L) 41 - 51 mmHg 07/25/2024 3:53 PM EST [facility] pO2, Mina 26 25 - 40 mmHg 07/25/2024 3:53 PM EST [facility] HCO3, Venous 8.9(L) 22.0 - 26.0 mmol/L 07/25/2024 3:53 PM EST [facility] O2 Sat, Mian 47.3 % 07/25/2024 3:53 PM EST [facility] Base Excess, Mian -18.2(L) -2.0 - 2.0 mmol/L 07/25/2024 3:53 PM EST [facility] Blood Venous blood specimen / Unknown Venipuncture / Unknown 07/25/2024 3:32 PM EST 07/25/2024 3:38 PM EST Marin Cade MD LAB BLOOD ORDERAB LES Performing Organization Address [facility]/ZIP Co de Phone Number [facility] [address] [place] [address], * (ABNORMAL) Comprehensive metabolic panel (07/25/2024 3:32 PM EST) Sodium 132(L) 133 - 145 mmol/L LAB CHEMISTRY METHOD 07/25/2024 4:18 PM EST [facility] Potassium 5.3 3.5 - 5.5 mmol/L LAB CHEMISTRY METHOD 07/25/2024 4:[address] [facility] Chloride 105 96 - 110 mmol/L LAB CHEMISTRY METHOD 07/25/2024 4:[address] [facility] CO2 8(LL) 21 - 32 mmol/L LAB CHEMISTRY METHOD 07/25/2024 4:[address] [facility] Anion Gap 19(H) 3 - 11 LAB CHEMISTRY METHOD 07/25/2024 4:[address] [facility] Glucose 429(HH) 70 - 100 mg/dL LAB CHEMISTRY METHOD 07/25/2024 4:[address] [facility] BUN 9 5 - 25 mg/dL LAB CHEMISTRY METHOD 07/25/2024 4:[address] [facility] Creatinine 1.23 0.70 - 1.30 mg/dL LAB CHEMISTRY METHOD 07/25/2024 4:[address] [facility] eGFR 84 >=60 mL/min/1. 73m2 LAB CHEMISTRY METHOD 07/25/2024 4:[address] [facility] Comment:Calculation based on the??Chronic Kidney Disease Epidemiology Collaboration (CKD-EPI) equation refit??without adjustment for race. BUN/Creatinine Ratio 7.3 LAB CHEMISTRY METHOD 07/25/2024 4:[address] [facility] Calcium 9.5 8.5 - 10.5 mg/dL LAB CHEMISTRY METHOD 07/25/2024 4:[address] [facility] AST (SGOT) 25 10 - 42 unit/L LAB CHEMISTRY METHOD 07/25/2024 4:[address] [facility] ALT (SGPT) 47 10 - 60 unit/L LAB CHEMISTRY METHOD 07/25/2024 4:[address] [facility] Alkaline Phosphatase 130(H) 42 - 121 unit/L LAB CHEMISTRY METHOD 07/25/2024 4:[address] [facility] Total Protein 9.2(H) 6.0 - 8.0 g/dL LAB CHEMISTRY METHOD 07/25/2024 4:18 PM EST [facility] Albumin 4.3 3.2 - 5.0 g/dL LAB CHEMISTRY METHOD 07/25/2024 4:18 PM EST [facility] Total Bilirubin 0.7 0.0 - 1.4 mg/dL LAB CHEMISTRY METHOD 07/25/2024 4:18 PM EST [facility] Blood Venous blood specimen / Unknown Venipuncture / Unknown 07/25/2024 3:32 PM EST 07/25/2024 3:38 PM EST Marin Cade MD LAB BLOOD ORDERAB LES [facility]) [facility] [address] [place] [address], * ECG-Annotated (07/25/2024) Provider Onbase ECG ORDERABLES from Last 3 Months Advance Directives * Full Code - Default (Latest Code Status on File) Date Activated Date Inactivated Comments 07/25/2024 4:56 PM 07/28/2024 5:00 PM This is or paz is used when code status has not been discussed with the patient, or code status is otherwise unknown/unconfirmed To update the patient's code status, place a code status order. Do not modify or discontinue any currently active code status orders. Care Teams Smart [employer] Specialist Relationship Specialty Start Date End Date Ling Beck NP [address] [place] [phone] PCP - General 07/25/24
[2024-10-04 14:01] LABS: Alanine Aminotransferase 24 U/L (0-40); Alkaline Phosphatase 75 U/L (39-117); Anion Gap 12 (12-20); Aspartate Amino Transferase 27 U/L (5-37); Bilirubin Total 0.6 mg/dL (0.0-1.0); Blood Urea Nitrogen 10 mg/dL (9-16); Carbon Dioxide 28 mmol/L (22-29); Chloride 104 mmol/L (96-108); Cholesterol 169 mg/dL (<200); Estimated Glomerular Filt Rate > 60; Glucose Random 110 mg/dL (60-115); HDL Cholesterol 38 mg/dL (>40); LDL Cholesterol Calculated 105 mg/dL (<100); Potassium 4.6 mmol/L (3.3-5.1); Sodium 139 mmol/L (135-145); Total Protein 8.2 g/dL (6.5-8.0); Triglycerides 134 mg/dL (<150)
[2024-10-04 14:02] LABS: Creatinine Urine 224.79 mg/dL; Microalbum/Creatinine Ratio Ur 5.7 ug/mg cr (<30)
[2024-10-04 14:18] LABS: Vitamin B12 365 pg/mL (200-900)
== END 2024-10-04 11:14 | disposition home or self-care (01) ==
LOC: HO.HHCL 11:13
PROVIDERS: Visit Provider Nurse Practitioner Primary Care
DX: E11.69 Type 2 diabetes mellitus with other specified complication (principal); E78.5 Hyperlipidemia, unspecified
CPT/HCPCS: 36415; 80053; 80061; 82043; 82570; 82607